=== PATIENT | female | born 1970 | race African-American/Black ===

== ENCOUNTER → 2016-11-25 | Outpatient (CLI) | payer OTHER ==
--- NOTE | 2016-11-25 17:20 | KCIC ---
Bilateral digital screening mammograms with CAD: HISTORY Routine screening. COMPARISON Comparison is made to previous studies dated 11/13/2015 and 01/12/2014. FINDINGS Breast density category B. The skin and nipples show no abnormalities. No abnormal lymph nodes are seen in the axilla. The breast parenchyma shows scattered fibroglandular density. There continues to be a tiny nodular density in the 6 o'clock B position of the left breast which has not changed. There are no new dominant masses, suspicious calcifications or architectural distortions. IMPRESSION No evidence of malignancy. Recommend routine annual mammographic screening. This study was interpreted with the benefit of Computerized Aided Detection (CAD). Mammography is not 100% sensitive in detecting breast cancer. Therefore, a self breast exam and a clinical breast exam are very important. A negative mammogram does not negate a clinically suspicious finding and should not result in a delay in biopsying a clinically suspicious abnormality. BI-RADS category 2: Benign. This patient's information has been entered into a reminder system for the patient to be notified with the results of this examination and a target date for her next mammograms. Electronically signed by: Alethea York MD (Nov 25, 2016 17:18:55)
== END | disposition home or self-care (01) ==
LOC: KCIC MAMMO 14:09
PROVIDERS: ATTEND Obstetrics & Gynecology
DX: Z12.31 Encounter for screening mammogram for malignant neoplasm of breast (principal)
CPT/HCPCS: G0202; 77067

== ENCOUNTER 2017-09-10 18:53 | Emergency (ER) | payer OTHER ==
[~2017-09-10] VITALS: Ht 157.5 cm; Wt 81.6 kg
[2017-09-10 19:09] VITALS: BP 125/89
[2017-09-10] MEDS ORDERED: KETOROLAC 60 MG/2 ML INJ. IM ONE (19:15)
[2017-09-10] MEDS ORDERED: NAPR500T PO (19:19)
--- NOTE | 2017-09-10 19:20 | PHYS DOC ---
Past Medical History Past Medical History: No Pertinent History Past Surgical History: Hysterectomy Alcohol Use: Occasionally Drug Use: None Adult General Chief Complaint Chief Complaint: KNEE SWELLING HPI HPI Patient is a 46 year old female presents to the emergency department with a 4 week history of right knee pain. She states that the pain began when she began her new job at [employer]. She has no known injury. She states there is pain when she walks up and down the stairs. No radiation pain. Review of Systems Review of Systems Constitutional: Denies fever or chills [] Eyes: Denies change in visual acuity, redness, or eye pain [] HENT: Denies nasal congestion or sore throat [] Respiratory: Denies cough or shortness of breath [] Cardiovascular: No additional information not addressed in HPI [] GI: Denies abdominal pain, nausea, vomiting, bloody stools or diarrhea [] : Denies dysuria or hematuria [] Musculoskeletal: Right knee pain Integument: Denies rash or skin lesions [] Neurologic: Denies headache, focal weakness or sensory changes [] Endocrine: Denies polyuria or polydipsia [] All other systems were reviewed and found to be within normal limits, except as documented in this note. Physical Exam Physical Exam Constitutional: Well developed, well nourished, no acute distress, non-toxic appearance. [] Neck: Normal range of motion, no tenderness, supple, no stridor. [] Cardiovascular:Heart rate regular rhythm, no murmur [] Lungs & Thorax: Bilateral breath sounds clear to auscultation [] Extremities: Right lower extremity: Right hip right ankle exam unremarkable. Right knee without swelling, no ecchymosis, no erythema. No laxity on anterior drawer, negative valgus/varus stress test. No pain with range of motion. She has diffuse tenderness to palpate without bony tenderness. Neurologic: Alert and oriented X 3, normal motor function, normal sensory function, no focal deficits noted. [] Psychologic: Affect normal, judgement normal, mood normal. [] Current Patient Data Vital Signs Vital Signs Date Time Temp Pulse Resp B/P (MAP) Pulse Ox O2 Delivery O2 Flow Rate FiO2 09/10/17 19:09 97.9 75 18 99 Room Air 97.9 EKG EKG [] Radiology/Procedures Radiology/Procedures [] Course & Med Decision Making Course & Med Decision Making Toradol 60 mg IM in the emergency department. Patient will be discharged home with Naprosyn plan for follow-up orthopedics Pertinent Labs and Imaging studies reviewed. (See chart for details) [] Dragon Disclaimer Dragon Disclaimer This electronic medical record was generated, in whole or in part, using a voice recognition dictation system. Departure Departure Impression: Primary Impression: Knee pain, right Disposition: HOME, SELF-CARE Condition: STABLE Referrals: UNKNOWN PCP NAME (PCP) BAR MCDERMOTT MD Patient Instructions: Knee Pain Scripts Naproxen (NAPROSYN) 500 Mg Tablet 500 MG PO BID, #20 TAB Prov: MARIAN SOLER APRN 09/10/17 Problem Qualifiers Primary Impression: Knee pain, right Chronicity: acute Qualified Codes: M25.561 - Pain in right knee MARIAN SOLER APRN Sep 10, 2017 19:19
== END 2017-09-10 19:29 | disposition home or self-care (01) ==
LOC: ER 18:53
DX: M25.561 Pain in right knee (principal); Z90.710 Acquired absence of both cervix and uterus
CPT/HCPCS: 96372; 99283; J1885

== ENCOUNTER → 2018-02-23 | Outpatient (CLI) | payer BC | END | disposition home or self-care (01) | LOC: KCIC MRI 12:38 | DX: M17.0 Bilateral primary osteoarthritis of knee (principal); M22.42 Chondromalacia patellae, left knee; M71.22 Synovial cyst of popliteal space [Baker], left knee | CPT/HCPCS: 73721 ==

== ENCOUNTER → 2018-02-27 | Outpatient (CLI) | payer BC | END | disposition home or self-care (01) | LOC: KCIC MAMMO 09:02 | DX: Z12.31 Encounter for screening mammogram for malignant neoplasm of breast (principal) | CPT/HCPCS: 77067 ==

== ENCOUNTER → 2019-03-12 | Outpatient (CLI) | payer BC ==
[~2019-03-12] MED LIST: NAPR-683 PO
--- NOTE | 2019-03-12 16:42 | KCIC ---
BILATERAL SCREENING MAMMOGRAM History: Routine screening. Comparison: Bilateral mammogram 02/27/2018 and dating back to 2015. Technique: Routine bilateral digital mammogram views were obtained. Findings: Breast Tissue Density B : There are scattered areas of fibroglandular density. There are no dominant masses, suspicious microcalcifications, or architectural distortion. IMPRESSION: No mammographic evidence of malignancy. Recommend routine screening. BI-RADS category 1: Negative. The images were reviewed with computer aided detection. Patient information is entered into the reminder system with a target due date for the next screening mammogram. Mammography is the most sensitive method for finding small breast cancers, but it does not detect them all and is not a substitute for careful clinical examination. A negative mammogram does not negate a clinically suspicious finding and should not result in delay in biopsying a clinically suspicious abnormality. "Our facility is accredited by the [employer] Mammography Program." Electronically signed by: Herb Domínguez MD (03/12/2019 4:39 PM) [id number]
== END | disposition home or self-care (01) ==
LOC: KCIC MAMMO 10:50
PROVIDERS: ATTEND Family Medicine
DX: Z12.31 Encounter for screening mammogram for malignant neoplasm of breast (principal)
CPT/HCPCS: 77067

== ENCOUNTER → 2021-06-14 | Outpatient (CLI) | payer BC ==
[~2021-06-14] MED LIST changes: +IOHEXOL 240 MG/ML 50ML VIAL. PO ONE; +IOHEXOL 300 MG/ML 100ML VIAL. IV ONE
--- NOTE | 2021-06-14 15:36 | RAD ---
CT PELVIS W dated 06/14/2021 2:35 PM Indication:Reason: INGUINAL HERNIA / Spl. Instructions: BALV150 75ML / History: Comparison: No comparison is available. Technique: CT images were performed through the pelvis following oral contrast ingestion and using an infusion of 75 mm Omnipaque 300. One or more of the following individualized dose reduction techniques were utilized for this examinat ion: 1. Automated exposure control 2. Adjustment of the mA and/or kV according to patient size 3. Use of iterative reconstruction technique Findings: The distal ureters are not dilated. The bladder was not well-distended, but appears normal. No pelvic or inguinal adenopathy is seen. There appears to be a small amount of tissue extending toward the up per right inguinal canal through the right lower abdominal wall just lateral to the inferior epigastr ic vessels. There is no included bowel. No separate pelvic mass or inflammatory process is seen. The uterus is not clearly seen and presumably has been removed. IMPRESSION: Findings suggest early right inguinal hernia without bowel involvement. Electronically signed by: Pedro Ludwig Jr., MD (06/14/2021 3:34 PM) [id number]
== END ==
LOC: CT 12:53
PROVIDERS: ATTEND Specialist
DX: K40.90 Unilateral inguinal hernia, without obstruction or gangrene, not specified as recurrent (principal)
CPT/HCPCS: 72193; Q9966; Q9967

== ENCOUNTER → 2021-06-21 | Outpatient (CLI) | payer BC ==
[~2021-06-21] MED LIST changes: +CYCL10TA2 PO; +HYDR-3072 PO; -IOHEXOL 240 MG/ML 50ML VIAL. PO ONE; -IOHEXOL 300 MG/ML 100ML VIAL. IV ONE; +MELO15TA23 PO
[2021-06-21 16:21] LABS: BASO % 1 % (0-3); EOS # 0.3 x10^3/uL (0.0-0.7); EOS % 5 % (0-3); HEMATOCRIT 32.2 % (36.0-47.0); HEMOGLOBIN 10.6 g/dL (12.0-15.5); LYMPH # 1.8 x10^3/uL (1.0-4.8); LYMPH % 25 % (24-48); MEAN CORPUSCULAR HEMOGLOBIN 30 pg (25-35); MEAN CORPUSCULAR HGB CONC 33 g/dL (31-37); MEAN CORPUSCULAR VOLUME 90 fL (79-100); MONO # 0.4 x10^3/uL (0.0-1.1); MONO % 6 % (0-9); NEUT # 4.5 x10^3/uL (1.8-7.7); NEUT % 64 % (31-73); PLATELET COUNT 307 x10^3/uL (140-400); RED BLOOD COUNT 3.58 x10^6/uL (3.50-5.40); RED CELL DISTRIBUTION WIDTH 14.8 % (11.5-14.5); WHITE BLOOD COUNT 7.1 x10^3/uL (4.0-11.0)
[2021-06-21 16:40] LABS: ALBUMIN 3.2 g/dL (3.4-5.0); ALBUMIN/GLOBULIN RATIO 0.9 (1.0-1.7); CALCIUM 8.5 mg/dL (8.5-10.1); CREATININE 0.7 mg/dL (0.6-1.0); GFR 106.7; POTASSIUM 4.1 mmol/L (3.5-5.1); TOTAL BILIRUBIN 0.2 mg/dL (0.2-1.0); TOTAL PROTEIN 6.6 g/dL (6.4-8.2)
== END ==
LOC: SURGPAT 15:01
PROVIDERS: ATTEND Specialist
DX: Z01.812 Encounter for preprocedural laboratory examination (principal); K40.30 Unilateral inguinal hernia, with obstruction, without gangrene, not specified as recurrent
CPT/HCPCS: 80053; 85025; U0003; U0005

== ENCOUNTER 2021-06-26 07:18 | Day surgery (SDC) | payer BC ==
[2021-06-21 15:22] VITALS: BP 124/77
[~2021-06-26] VITALS: Ht 157.5 cm; Wt 66.0 kg
[~2021-06-26 07:18] MED LIST changes: +HYDROmorphone 2 MG/ML VIAL IVP PRN; +IV RINGERS,LACTATED 1000ML 1,000 ML IV SCH; +PROCHLORPERAZINE 10 MG/2 ML VIAL. IVP PRN; +ceFAZolin SODIUM IV Push 1 GM VIAL. IVP PRN; +fentaNYL PF VIAL 100 MCG/2 ML VIAL IVP PRN
[2021-06-26] MEDS ORDERED: BUPIVACAINE-EPI 0.25%-1:200000 MPF 30 ML VIAL. ONE (07:27)
[2021-06-26] MEDS ORDERED: BENZOIN TINCTURE TP ONE (07:27)
[2021-06-26] MEDS ORDERED: LIDOCAINE 2% PF 5 ML VIAL. ONE (08:18)
[2021-06-26] MEDS ORDERED: ONDANSETRON PF 4 MG/2 ML VIAL. ONE (08:18)
[2021-06-26] MEDS ORDERED: PROPOFOL 10 MG/ML (20ML) VIAL. IV ONE ×2 (08:18→11:01)
[2021-06-26] MEDS ORDERED: DEXAMETHASONE SOD PHOS 4 MG/ML VIAL ONE (08:18)
[2021-06-26] MEDS ORDERED: fentaNYL PF VIAL 100 MCG/2 ML VIAL ONE ×3 (08:19→12:46)
[2021-06-26] MEDS ORDERED: MIDAZOLAM HCL/PF 2 MG/2 ML VIAL. ONE ×2 (08:19→13:04)
[2021-06-26] MEDS ORDERED: ePHEDrine PF IN SALINE 50 MG/10 ML SYRINGE. IV ONE (08:19)
[2021-06-26] MEDS ORDERED: ROCURONIUM 50 MG/5 ML VIAL. ONE (08:20)
[2021-06-26] MEDS ORDERED: GLYCOPYRROLATE 1 MG/5 ML VIAL. ONE (08:20)
--- NOTE | 2021-06-26 08:58 | PREOP HP ---
DATE OF SERVICE: 06/26/2021 HISTORY OF PRESENT ILLNESS: The patient was referred because of a right inguinal mass. Apparently, she has had this for about a year. It is getting larger and hurting her. She denies any other significant illnesses. PAST MEDICAL AND SURGICAL HISTORY: Shows normal childhood diseases. She does not have TB, asthma, diabetes or any other disease. Has had surgery twice arthroscopic on both knees. No other surgery. ALLERGIES: She has no allergies. MEDICATIONS: Takes no other medication other than pain medicine for knees. REVIEW OF SYSTEMS: Negative except for the right groin pain, which comes on time to time when she does strenuous activity and she states she can actually see the mass. It goes away when she sleeps. Otherwise, she just has knee pain with walking and standing. FAMILY HISTORY: Noncontributory. PHYSICAL EXAMINATION: GENERAL: Shows an alert female in no acute distress. HEAD, EYES, EARS, NOSE AND THROAT: Grossly normal. CHEST: Clear bilaterally to auscultation. HEART: Had no murmurs, heaves, friction rubs or thrills and had a regular rate of 78 beats per minute. ABDOMEN: Soft. There were no organomegaly, no masses. The groin on the right side did have a small mass adn was painful, When I touched it a small mass go back inside. I could not reproduce it at this time, but she states it does come out and gets large, so she can see it. She has been seen by other physicians and noted to have a right inguinal hernia also. EXTREMITIES: Grossly normal except for the painful knees. IMPRESSION: 1. Meniscal tear, right and left knees. 2. Right inguinal hernia. PLAN: We will plan to repair right inguinal hernia at a time and date that is satisfactory with her. I have gone over all other parameters of the surgery including infection and the possible use of mesh. She agrees and we will proceed. [facility] [place] Renu TID: [id number] KRYSTIN
--- NOTE | 2021-06-26 09:22 | PDOC ---
SURGICAL PROGRESS NOTE DATE: 06/26/21 TIME: 09:21 No change in dictated H&P Vital Signs Vital Signs Date Time Temp Pulse Resp B/P (MAP) Pulse Ox O2 Delivery O2 Flow Rate FiO2 06/26/21 07:40 97.8 99 20 134/71 98 Room Air 97.8 Labs Laboratory Tests Test 06/26/21 07:28 Bedside Urine HCG, Qualitative Hcg negative (Negative) Laboratory Tests Test 06/26/21 07:28 Bedside Urine HCG, Qualitative Hcg negative (Negative) Justicifation of Admission Dx: Justifications for Admission: Justification of Admission Dx: Yes GIL MORALES MD Jun 26, 2021 09:22
--- NOTE | 2021-06-26 09:25 | PDOC ---
SURGICAL PROGRESS NOTE DATE: 06/26/21 TIME: 09:22 Op Note: Surgeon................................................Morales Pre op diag............................................right inguinal hernia Post op diag..........................................incarcerated right inguinal hernia Anaesthesia..........................................General Procedure.............................................Repair incarc Right inguinal hernia Drains..................................................none Fluids..................................................See anesthesia sheet Blood loss............................................5cc condition.............................................satisfactory Vital Signs Vital Signs Date Time Temp Pulse Resp B/P (MAP) Pulse Ox O2 Delivery O2 Flow Rate FiO2 06/26/21 07:40 97.8 99 20 134/71 98 Room Air 97.8 Labs Laboratory Tests Test 06/26/21 07:28 Bedside Urine HCG, Qualitative Hcg negative (Negative) Laboratory Tests Test 06/26/21 07:28 Bedside Urine HCG, Qualitative Hcg negative (Negative) Justicifation of Admission Dx: Justifications for Admission: Justification of Admission Dx: Yes GIL MORALES MD Jun 26, 2021 09:25
[2021-06-26] MEDS ORDERED: PHENYLEPHRINE in 0.9% NACL PF 1 MG/10 ML SYRINGE. IV ONE (09:43)
[2021-06-26] MEDS ORDERED: NEOSTIGMINE METHYLSULFATE 5 MG/5 ML SYRINGE. ONE ×2 (09:54→09:55)
[2021-06-26] MEDS ORDERED: SEVOFLURANE > 120 MINUTES. IH ONE (10:12)
--- NOTE | 2021-06-26 11:57 | DISCH ---
DISCHARGE INSTRUCTIONS Condition on Discharge Condition on Discharge: Stable Activity After Discharge Activity Instructions for Disc: Avoid exertion Diet after Discharge Additional Diet Restrictions: as pre op Wound Incision Care Other wound/incision instructi: leave dressing i place...do not remove Follow-Up Follow up with: ashlie and make appt to see Dr. roberto 2 weeks GIL ROBERTO MD Jun 26, 2021 11:57
[2021-06-26] MEDS ORDERED: HYDROcodone/APAP 7.5/325MG 1 TAB TABLET PO ONE (12:15)
[2021-06-26] MEDS: fentaNYL PF VIAL 100 MCG/2 ML VIAL IVP PRN ×2 (12:52→13:02)
[2021-06-26] MEDS ORDERED: MORPHINE SULFATE 2 MG/ML INJ. ONE (12:53)
[2021-06-26] MEDS: MORPHINE SULFATE 2 MG/ML INJ. IVP PRN ×2 (12:55→13:14)
[2021-06-26] MEDS ORDERED: MIDAZOLAM HCL/PF 2 MG/2 ML VIAL. IV ONE (13:15)
[2021-06-26 13:30] VITALS: BP 110/66
--- NOTE | 2021-06-26 14:40 | OP ---
DATE OF SURGERY: 06/26/2021 SURGEON: Deyvi Nunez MD PREOPERATIVE DIAGNOSIS: Incarcerated right inguinal hernia. POSTOPERATIVE DIAGNOSIS: Incarcerated right inguinal hernia. ANESTHESIA: General. PROCEDURE: Repair of incarcerated right inguinal hernia. DESCRIPTION OF PROCEDURE: Once under general anesthesia,the patient was properly prepped and draped in a routine fashion. The lesion being on the right side, we made an incision following the skin lines with a 15 blade. This was in the right pelvis. We carried this through the skin. Bleeding was controlled with cautery. We then went with cautery through the subcutaneous down to the fascia. Small vessels were cauterized. We then made a small amber in the external oblique aponeurosis in the direction of the fibers obliquely with the inferior portion being medial. We then spread scissors under this and opened this up through the external inguinal ring. We saw a mass there and it was obvious that this could not be easily reduced. Apparently, it has been there for some time and discarded. At any rate, we slowly went around what was the round ligament at the pubic tubercle, pulled it up and divided some of the fibers away from it. The mass was intimately associated with this. We then put a Jorge Alberto drain around this, pulled it up and then using Metzenbaum scissors, pushing the tissues away, we slowly divided the sac which was scarred there and associated with the round ligament. We slowly got it completely removed. Some of the preperitoneal fat was there and we got it high and mobilized it high up into the internal inguinal ring. We did not open the sac. We then inverted the sac and used an extra-large PerFix plug to fit well up into the internal inguinal ring and sutured this in place using 3-0 Vicryl. This having been done, the sac reduced, we then placed a patch in the posterior floor, making an opening in it, so it would go around the round ligament. We then used 2-0 Prolene to suture the slit around the round ligament, pushed it down so that it laid flat on the inguinal floor. We then used 0 Prolene, starting at the pubic tubercle, ran one suture laterally, taken to shelving edge of Poupart's ligament and the mesh, and took it well up passing the internal inguinal ring. The medial one we used at transversalis fascia and ran it around from the pubic tubercle to over the internal inguinal ring and back to Poupart's ligament. These had been tied and basically the patch was then placed and the plug was placed. The round ligament was placed back in its normal position and we inspected the area was well. Some of the redundant mesh was removed by the suture scissors. Some of the mesh was laid flat on the anterior abdominal wall near the suture line, so that it was laying flat. We then injected 0.5% Marcaine with epinephrine into the tissues and the fascia. All was well, there was no further bleeding and the wound had been irrigated with saline. We then closed the external oblique aponeurosis with 2-0 Prolene in a running fashion to the external inguinal ring. We then injected this also with 0.5% Marcaine with epinephrine. Again, the subcutaneous was then irrigated with saline again and we approximated the deeper tissues using interrupted 4-0 Vicryl and the skin was closed using a 5-0 Vicryl subcuticular suture. It should be noted that the hernia could be reduced once the scar tissue was removed and was easily reduced, but it was incarcerated prior to surgery. The procedure was now terminated as a sterile Tegaderm dressing was applied. No drains were used. Fluids given can be obtained from the Anesthesia sheet. BLOOD LOSS: About 5 mL. FLUIDS GIVEN: Can be obtained from the anesthesia sheet, as stated before. CONDITION OF THE PATIENT: Satisfactory as she has returned to the recovery room. CALLI DR: Renu TID: [id number] [facility]
== END 2021-06-26 13:50 | disposition home or self-care (01) ==
LOC: SURG 07:18
PROVIDERS: ATTEND Specialist
DX: K40.30 Unilateral inguinal hernia, with obstruction, without gangrene, not specified as recurrent (principal); Z79.899 Other long term (current) drug therapy; Z90.710 Acquired absence of both cervix and uterus; Z98.890 Other specified postprocedural states; Z72.89 Other problems related to lifestyle
CPT/HCPCS: 49507; 81025; A4930; A6258; C1781; J0690; J1100; J2250; J2270; J2370; J2405; J2704; J2710; J3010; J3490

== ENCOUNTER 2022-02-12 23:53 | Emergency (ER) | payer BC ==
[~2022-02-12] VITALS: Ht 157.5 cm; Wt 68.0 kg
[~2022-02-12 23:53] MED LIST changes: +CYCL10TA19 PO; -CYCL10TA2 PO; -HYDROmorphone 2 MG/ML VIAL IVP PRN; -IV RINGERS,LACTATED 1000ML 1,000 ML IV SCH; -PROCHLORPERAZINE 10 MG/2 ML VIAL. IVP PRN; -ceFAZolin SODIUM IV Push 1 GM VIAL. IVP PRN; -fentaNYL PF VIAL 100 MCG/2 ML VIAL IVP PRN
[2022-02-13 00:03] VITALS: BP 144/69
[2022-02-13] MEDS ORDERED: DEXAMETHASONE 4 MG TABLET PO ONE (00:30)
[2022-02-13] MEDS ORDERED: oxyCODONE/APAP 5/325 1 TAB TABLET PO ONE (00:30)
[2022-02-13] MEDS ORDERED: KETOROLAC 30 MG/ML VIAL. IM ONE (00:30)
--- NOTE | 2022-02-13 00:32 | PHYS DOC ---
Past Medical History Past Medical History: Arthritis Additional Past Medical Histor: Chronic right leg pain Past Surgical History: No Surgical History Smoking Status: Never Smoker Alcohol Use: None Drug Use: None General Adult EDM: Chief Complaint: LOWER EXT PAIN HPI: HPI: Patient is a 51-year-old female presents with worsening chronic pain to her right leg. Patient reports radiation from her thigh down to her ankle. Denies back pain. 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 Patient denies loss of bowel or bladder. Patient reports she was working at [employer] and pain became more severe. Denies recent trauma. Patient reports she takes hydrocodone for her pain. Patient follows with pain management and reports her next refill is 02/18/2022. Review of Systems: Review of Systems: Constitutional: Denies fever or chills Eyes: Denies redness or eye pain HENT: Denies nasal congestion or sore throat Respiratory: Denies cough or shortness of breath Cardiovascular: Denies chest pain or palpitations GI: Denies abdominal pain, nausea, or vomiting : Denies dysuria or hematuria Musculoskeletal: Denies back pain; reports right leg pain Integument: Denies rash or skin lesions Neurologic: Denies headache, focal weakness or sensory changes Complete systems were reviewed and found to be within normal limits, except as documented in this note. Heart Score: C/O Chest Pain: N/A Current Medications: Current Medications Medications (Trade) Dose Ordered Sig/Luly Start Time Stop Time Status Last Admin Dose Admin Dexamethasone (Decadron) 10 mg 1X ONCE 02/13/22 00:30 02/13/22 00:31 UNV Ketorolac Tromethamine (Toradol 30mg Vial) 30 mg 1X ONCE 02/13/22 00:30 02/13/22 00:31 UNV Oxycodone/ Acetaminophen (Percocet 5/325) 1 tab 1X ONCE 02/13/22 00:30 02/13/22 00:31 UNV Allergies: Allergies: Allergies Coded Allergies Type Severity Reaction Last Updated Verified No Known Drug Allergies 02/13/22 No Physical Exam: PE: Constitutional: Well developed, well nourished, no acute distress, non-toxic appearance HENT: Normocephalic, atraumatic Eyes: Conjunctiva normal, no discharge Neck: Normal range of motion, supple Lungs & Thorax: No respiratory distress, equal chest rise and fall Skin: Warm, dry, no erythema, no rash Back: No paraspinal or midline tenderness, no CVA tenderness Extremities: No calf tenderness, ROM intact, 1+ bilateral lower extremity edema, PT and DP bilaterally +2, no deformity Neurologic: Alert and oriented X 3, normal motor function, normal sensory function, no focal deficits noted Psychologic: Affect normal, judgment normal Current Patient Data: Vital Signs: Vital Signs Date Time Temp Pulse Resp B/P (MAP) Pulse Ox O2 Delivery O2 Flow Rate FiO2 02/13/22 00:03 98.2 92 18 144/69 (94) 98 Room Air 98.2 EKG: EKG: [] Radiology/Procedures: Radiology/Procedures: [] Course & Med Decision Making: Course & Med Decision Making Patient presents with acute on chronic right leg pain. Denies history. No deformity noted. Limb neurovascularly intact. Patient currently follows with pain management and appears to be on a pain contract. Symptomatic treatment provided in the emergency department. Request patient follow closely with her ceramic painter for further evaluation and treatment. Patient stable for discharge with outpatient follow-up with PCP/pain management. Discussed findings and plan with patient, who acknowledges understanding and agreement. Chago Disclaimer: Chago Disclaimer: This electronic medical record was generated, in whole or in part, using a voice recognition dictation system. Departure Departure Impression: Primary Impression: Chronic leg pain Qualified Codes: M79.604 - Pain in right leg; G89.29 - Other chronic pain Disposition: HOME / SELF CARE / HOMELESS Condition: STABLE Referrals: NO PCP (PCP) Patient Instructions: Chronic Pain Additional Instructions: Please follow closely with your doctors. Given you are on a pain contract we cannot prescribe any further pain medication. Please call and discuss your current pain with your ceramic painter. KANDI TOM DO February 13, 2022 00:32
== END 2022-02-13 00:47 | disposition home or self-care (01) ==
LOC: ER 23:53
DX: M79.604 Pain in right leg (principal); G89.29 Other chronic pain
CPT/HCPCS: 96372; 99283; J1885